=== PATIENT | male | born 1995 | race Hispanic/Latino ===

== ENCOUNTER 2017-03-16 12:15 | Emergency (ER) | payer OTHER ==
[~2017-03-16] VITALS: Ht 182.9 cm; Wt 88.5 kg
[~2017-03-16 12:15] MED LIST: AMOXICILLIN500 M2 PO; AUGMENTIN 875-1 EACH PO; BACTRIM DS TAB1 EACH PO; NORCO 5-325 TA1 EACH PO; VYVANSE40 M1 PO
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
[2017-03-16 12:30] VITALS: BP 160/93
== END 2017-03-16 13:23 ==
LOC: ERH 12:15
DX: S00.83XA Contusion of other part of head, initial encounter (principal); Y04.8XXA Assault by other bodily force, initial encounter; Y92.238 Other place in hospital as the place of occurrence of the external cause; Y93.9 Activity, unspecified